=== PATIENT | female | born 1960 | race Two or more races ===

== ENCOUNTER 2025-02-03 05:44 | Day surgery (SDC) | payer OTHER ==
[2025-01-27 11:55] VITALS: BP 132/76
[~2025-02-03] VITALS: Ht 154.9 cm; Wt 83.9 kg
[~2025-02-03 05:44] MED LIST: LIPOFEN50 MG PO; LOSARTAN-HCTZ1 EAC1 PO; SIMVASTATIN20 MG PO
[2025-02-03] MEDS ORDERED: METRONIDAZOLE/SODIUM CHLORIDE 500 MG/100 ML PIGGYBACK IV ONE (09:07)
[2025-02-03] MEDS ORDERED: CEFTRIAXONE SODIUM 2,000 MG VIAL ONE (09:07)
[2025-02-03] MEDS ORDERED: DIBUCAINE 30 GM TUBE ONE (10:49)
[2025-02-03] MEDS ORDERED: BUPIVACAINE HCL/MPF 0.5% 30ML VIAL ONE (10:49)
[2025-02-03] MEDS ORDERED: POVIDONE-IODINE 118 ML BOTT TOP ONE (10:49)
[2025-02-03] MEDS ORDERED: HEMOSTATIC MATRIX 1 KIT KIT TOP ONE (10:49)
[2025-02-03] MEDS ORDERED: LIDOCAINE HCL 1%/EPINEPHRINE 20ML VIAL IJ ONE (10:49)
[2025-02-03] MEDS ORDERED: TAMSULOSIN HCL 0.4 MG CAP PO ONE ×2 (12:30→14:47)
[2025-02-03] MEDS ORDERED: OXYCODONE HCL5 MG PO (12:49)
== END 2025-02-03 15:30 | disposition home or self-care (01) ==
LOC: CIR.AMB 05:44
PROVIDERS: ATTEND Surgery
DX: K64.1 Second degree hemorrhoids (principal); K64.4 Residual hemorrhoidal skin tags; K60.1 Chronic anal fissure; K62.5 Hemorrhage of anus and rectum; K62.89 Other specified diseases of anus and rectum; I10 Essential (primary) hypertension